=== PATIENT | female | born 2000 | race Two or more races ===

== ENCOUNTER 2025-03-14 14:36 | Emergency (ER) | payer MEDICAID, OTHER ==
[~2025-03-14] VITALS: Ht 172.7 cm; Wt 73.4 kg
[2025-03-14 15:42] LABS: Hematocrit 42.4 % (36.0-46.0); Hemoglobin 14.2 g/dL (12.2-16.2); Mean Corpuscular Hemoglobin 28.4 pg (28.0-32.0); Mean Corpuscular Volume 84.8 fL (80.0-100.0); Nucleated Red Blood Cells % 0.0 %
[2025-03-14 15:51] LABS: Chloride 105 mmol/L (98-107); Potassium 3.9 mmol/L (3.5-5.1); Sodium 140 mmol/L (136-145)
[2025-03-14 15:52] LABS: Anion Gap 11 (5-15); Calcium 9.1 mg/dL (8.7-10.4); Carbon Dioxide 24 mmol/L (20-31)
[2025-03-14 15:57] LABS: Glucose 88 mg/dL (74-106)
[2025-03-14 16:09] LABS: BUN/Creatinine Ratio 9.5 (10.0-20.0)
[2025-03-14 16:19] LABS: Blood Urea Nitrogen 7 mg/dL (9-23)
[2025-03-14 17:33] LABS: Urine Protein, UAD TRACE (Negative)
--- NOTE | 2025-03-14 18:34 | ED.PDOC ---
History of Present Illness HPI Comments 24-year-old female who came to ER for vaginal bleeding. Patient is a , approximately 4 weeks by LMP. For the past 2 days she has been experiencing lower abdominal cramping pain, earlier today she started having vaginal bleeding. Denies any trauma REVIEW OF SYSTEMS: General: No fever, no chills, or fatigue HEENT: No sore throat, no earache, no congestion, no neck pain. Cardiac: No chest pain. No palpitations. Lungs: No shortness of breath, no cough. GI: No nausea, no vomiting, no diarrhea, no constipation, (+) abdominal pain : No dysuria, frequency, or urgency. No hematuria. (+) vaginal bleeding Musculoskeletal: No joint pain , no joint swelling, no extremity edema. Skin: No rash, no itching. Neuro: No headache, no dizziness, no weakness PHYSICAL EXAM: General: Awake, alert and oriented. No acute distress. Skin: Skin in warm, dry and intact without rashes or lesions. HEENT: The head is normocephalic and atraumatic. Conjunctivae are clear without exudates or hemorrhage. Sclera is non-icteric. Neck: Normal range of motion. No JVD. Cardiac: Regular rate Respiratory: No signs of respiratory distress. No Stridor. Abdomen: No tenderness, no CVA tenderness Neurological: The patient is awake, alert and oriented to person, place, and ti me with normal speech. Speech is clear. There is no facial asymmetry. Normal gait Psychiatric: Appropriate mood and affect. Good judgement and insight. 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 Was a procedure done?: No Differential Dx Considerations may include: Early , ectopic . UTI X-Ray, Labs, Meds, VS Vital Signs Date Time Temp Pulse Resp B/P (MAP) Pulse Ox O2 Delivery O2 Flow Rate FiO2 03/14/25 20:45 Room Air* 0 21 03/14/25 19:42 98.7 93 18 135/85 (102) 99 98.7 03/14/25 14:37 97.9 94 15 138/91 99 97.9 Lab Test 03/14/25 16:35 03/14/25 15:22 Range/Units Urine Color Yellow Yellow Urine Clarity Turbid H Clear Urine pH 6.5 5.0-9.0 Urine Specific [place] 1.016 1.001-1.035 Urine Protein Trace H Negative Urine Ketones 1+ H Negative Urine Blood 3+ H Negative /uL Urine Nitrite Negative Negative Urine Bilirubin Negative Negative Urine Urobilinogen Normal Negative mg/dL Urine Leukocyte Esterase 1+ Negative /uL Urine RBC 3 0 - 4 /hpf Urine Microscopic WBC 9 H 0-5 /HPF Urine Squamous Epithelial Cells Few <5 /hpf Urine Bacteria None seen None Seen /hpf Urine Glucose Normal Normal mg/dL Chlamydia trachomatis (KOFI) Pending Neisseria gonorrhoeae (KOFI) Pending White Blood Count 7.5 4.4-10.8 10^3/uL Red Blood Count 5.00 4.0-5.20 10^6/uL Hemoglobin 14.2 12.2-16.2 g/dL Hematocrit 42.4 36.0-46.0 % Mean Corpuscular Volume 84.8 80.0-100.0 fL Mean Corpuscular Hemoglobin 28.4 28.0-32.0 pg Mean Corpuscular Hemoglobin Concent 33.5 32.0-36.0 g/dL Red Cell Distribution Width 14.2 11.8-14.3 % Platelet Count 238 140-450 10^3/uL Mean Platelet Volume 10.6 6.9-10.8 fL Neutrophils (%) (Auto) 57.3 37.0-80.0 % Lymphocytes (%) (Auto) 34.1 10.0-50.0 % Monocytes (%) (Auto) 7.6 0.0-12.0 % Eosinophils (%) (Auto) 0.5 0.0-7.0 % Basophils (%) (Auto) 0.5 0.0-2.0 % Neutrophils # (Auto) 4.3 1.6-8.6 10 ^3/uL Lymphocytes # (Auto) 2.6 0.4-5.4 10 ^3/uL Monocytes # (Auto) 0.6 0-1.3 10 ^3/uL Eosinophils # (Auto) 0 0-0.8 10 ^3/uL Basophils # (Auto) 0 0-0.2 10 ^3/uL Nucleated Red Blood Cells 0.0 % Sodium Level 140 136-145 mmol/L Potassium Level 3.9 3.5-5.1 mmol/L Chloride Level 105 98-107 mmol/L Carbon Dioxide Level 24 20-31 mmol/L Anion Gap 11 5-15 Blood Urea Nitrogen 7 L 9-23 mg/dL Creatinine 0.74 0.550-1.02 mg/dL Glomerular Filtration Rate Calc 115 >90 mL/min BUN/Creatinine Ratio 9.5 L 10.0-20.0 Serum Glucose 88 74-106 mg/dL Calcium Level 9.1 8.7-10.4 mg/dL Beta HCG, Quantitative 90.0 H 1.5-4.2 mIU/mL PATIENT: FLORENCE BECERRA GACCT: [id number]: [id number] : 2000 LOC: ER ROOM / BED: / AGE / SEX: 24 / F ADM STATUS: REG ER SERVICE 183 ORDERING PHYSICIAN: ALEXANDRA RICO MD PROCEDURE(s): OB4US - OB ULTRASOUND COMP LESS 14WKS REASON: Vaginal Bleeding during ORDER NUMBER(s): [id number], ACCESSION NUMBER(s): [id number] Procedure: US OB ULTRASOUND COMP LESS 14WKS Study Date and Requested Time: 03/14/2025 07:37 PM Study Description: US OB ULTRASOUND COMP LESS 14WKS History: Vaginal Bleeding during Comparison: None Technique: Multiple high resolution greenberg-scale images obtained of the uterus, fetus, and other gestational components with M-mode scanning for evaluation of heart rate. Findings: No intrauterine is visualized. Uterus measures 6.2 x 4.2 x 4.6 cm in size. Cervical os appears closed. Endometrial thickness of 1 cm Right ovary measures 1.9 x 1 x 1 x 1.3 cm with normal color doppler flow. The left ovary is not visualized. No evidence of free fluid in the cul-de-sac. Impression: No intrauterine is visualized. An ectopic can not excluded. Recommend correlation with beta HCG and ultrasound as clinically indicated. Right ovary is within normal limits. The left ovary is not visualized. Time of 1ST Reevaluation: 18:30 Reevaluation 1ST: Unchanged Patient Education/Counseling: Need For Follow Up Family Education/Counseling: No Family Present SEPSIS Sepsis Screen Date sepsis recognized/suspect: Mar 14, 2025 Time Sepsis recognized/suspect: 1440 Recent Procedure: No On Antibiotic Therapy: No Respiratory Rate >20: No Heart Rate >90: No Temp<36 C (96.8 F) or >38.3 C: No SBP <90 or MAP <65 mmHG: No New Acute Mental Status Change: No Is the patient on CPAP, BIPAP,: No Physician Orders Chlamydia/Gc Amplification (03/14/25 18:39) Ob Ultrasound Comp Less 14wks (03/14/25 18:39) Vital Signs Date Time Temp Pulse Resp B/P (MAP) Pulse Ox O2 Delivery O2 Flow Rate FiO2 03/14/25 20:45 Room Air* 0 21 03/14/25 19:42 98.7 93 18 135/85 (102) 99 98.7 03/14/25 14:37 97.9 94 15 138/91 99 97.9 Laboratory Tests Test 03/14/25 15:22 White Blood Count 7.5 10^3/uL (4.4-10.8) Departure 1 Departure Time of Disposition: 19:42 Impression: Primary Impression: Vaginal bleeding during Additional Impression: , location unknown Disposition: 01 HOME / SELF CARE / HOMELESS Condition: Stable Additional Instructions: INSTRUCCIONES DE ERIC DE Urgencias Instrucciones: Liv atentamente todas las instrucciones proporcionadas en [place]. Aunque le hayan dado el eric del Departamento de Emergencias, esto no significa que tenga un "certificado de buena niko". Hoy no se salgado realizado ningn diagnstico definitivo para pablo sntomas. Es posible que ests en proceso de desarrollar jesi enfermedad grave. Es por eso que debe regresar al servicio de urgencias sin falta si presenta algn sntoma nuevo o que empeora (especialmente si pablo sntomas incluyen dolor en el pecho, dificultad para respirar, dolor abdominal, fiebre, dolor de abby, confusin, dificultad para marcus o caminar). Es muy importante que consulte con fermin gineclogo/obstetra para repetir la prueba de embarazo y jesi ecografa dentro de 3 a 5 teixeira. Si no puede obtener jesi vasiliy con fermin gineclogo/obstetra, regrese al servicio de urgencias para que le repitan las pruebas. Adjunto encontrar ejsi copia de fermin informe de ecografa. Por favor, entregue [place] y llvelo a fermin prxima vasiliy de seguimiento. Embarazo de ubicacin desconocida (EUD) Qu es un EUD? Un embarazo de ubicacin desconocida (EUD) se produce cuando jesi prueba de embarazo en orina o zafar da positiva y el embarazo no se puede marcus en jesi ecografa. Cuando se tiene un EUD, debe encontrarse. El equipo mdico decidir si crecer de forma puga. Por qu no podemos verlo en jesi ecografa? Es demasiado pronto para verlo Jesi persona est teniendo un aborto espontneo Hay un embarazo ectpico Qu es un embarazo ectpico? Es un embarazo que comenz fuera del tero. [place] puede ser potencialmente mortal [place] es normal Necesitar un seguimiento cercano con: Ecografas Anlisis de zafar Visitas con fermin equipo de atencin mdica Los embarazos ectpicos ocurren con mayor frecuencia dentro de la trompa de [place]. Tambin se le puede llamar embarazo tubrico. Otros lugares donde se pueden encontrar son: El francisca uterino Jesi cicatriz de cesrea Un ovario El abdomen 2 de cada 100 embarazos estarn fuera del tero (ectpicos). El embarazo no puede continuar porque: Pueden ser potencialmente mortales No puede ser un embarazo viable No se puede trasladar al tero Cuando se detectan a tiempo, algunos se pueden tratar con un medicamento llamado metotrexato. Es posible que necesite jesi ciruga lidia para extraer el embarazo o la trompa de [place]op[place]. Cuidndose en casa Hasta que se detecte el embarazo, debe: Guardar reposo plvico ( no se laura duchas vaginales, no use tampones ni tenga relaciones sexuales). No xin ibuprofeno, Motrin , aspirina ni otros medicamentos CALVIN Caney acetaminofn (Tylenol ) segn sea necesario. Erika kiki agua. Caney fermin medicamento a menos que fermin equipo de atencin mdica le indique lo contrario No espere hasta que la clnica est abierta. Llame de inmediato o vaya a la carlos de emergencias si tiene: Sangrado vaginal abundante (empapa jesi toalla sanitaria en menos de 1 hora) Dolor abdominal intenso o que empeora Mareo o desmayo Seguimiento Se necesita un seguimiento cercano para un embarazo de localizacin desconocida (PUL) Un anlisis de zafar. Esta prueba se conoce katie gonadotropina corinica humana beta srica (HCG). Tambin se puede llamar cuantificacin. Regrese para hacerse fermin segunda prueba de HCG 48 horas despus de esta visita. Fermin nivel de HCG debera aumentar aproximadamente un 66 % en cori tiempo si: el embarazo es normal est creciendo en fermin tero Jesi ecografa en 3 a 5 teixeira Necesita regresar para hacerse pruebas. PATIENT: RODRÍGUEZ ESTRELLA,HEILYN G ACCT: [id number] UNIT: [id number] : 2000 LOC: ER ROOM / BED: / AGE / SEX: 24 / F ADM STATUS: REG ER SERVICE 38 PROCEDURE(s): OB4US - OB ULTRASOUND COMP LESS 14WKS REASON: Vaginal Bleeding during ORDER NUMBER(s): [id number], ACCESSION NUMBER(s): [id number] Procedure: US OB ULTRASOUND COMP LESS 14WKS Study Date and Requested Time: 03/14/2025 07:37 PM Study Description: US OB ULTRASOUND COMP LESS 14WKS History: Vaginal Bleeding during Comparison: None Technique: Multiple high resolution greenberg-scale images obtained of the uterus, fetus, and other gestational components with M-mode scanning for evaluation of heart rate. Findings: No intrauterine is visualized. Uterus measures 6.2 x 4.2 x 4.6 cm in size. Cervical os appears closed. Endometrial thickness of 1 cm Right ovary measures 1.9 x 1 x 1 x 1.3 cm with normal color doppler flow. The left ovary is not visualized. No evidence of free fluid in the cul-de-sac. Impression: No intrauterine is visualized. An ectopic can not excluded. Recommend correlation with beta HCG and ultrasound as clinically indicated. Right ovary is within normal limits. The left ovary is not visualized. ATED BY: DOLLY VOSS DO DICTATED DATE/TIME: 03/14/252013 SIGNED BY: DOLLY VOSS DO SIGNED DATE/TIME: 03/14/252013 CC: Comments MDM: [age] female with subchorionic hemorrhage. Patient advised to return to the emergency department or follow up with chip mixing machine operator within a few days for re-evaluation. I reviewed the following notes from the pt's past medical encounters: N/A The following tests were ordered, and results were reviewed by me: (See diagnostic results section) I discussed treatments and results with patient Decision regarding hospitalization or escalation of hospital level of care: Risks and benefits of admission for further treatment of patient's condition was considered however due to patient's stable condition patient will be discharged to follow up closely or return to care for worsening of condition or inability to follow up. Critical Care Note Critical Care Time?: No Stability Stability form required: No Heart Score Heart Score: Heart Score Response (Comments) Value History N/A 0 EKG N/A 0 Age N/A 0 Risk Factors N/A 0 Troponin N/A 0 Total 0 I personally scribed for ALEXANDRA RICO MD ([email or web address]) on 03/14/25 at 18:34. Electronically submitted by Torsten Wilson ([email or web address]). ALEXANDRA RICO MD Mar 14, 2025 18:34
[2025-03-14 19:42] VITALS: BP 135/85; PULSE 93; RESP 18; TEMP 98.7; O2SAT 99
--- NOTE | 2025-03-14 20:17 | DVH ---
Procedure: US OB ULTRASOUND COMP LESS 14WKS Study Date and Requested Time: 03/14/2025 07:37 PM Study Description: US OB ULTRASOUND COMP LESS 14WKS History: Vaginal Bleeding during Comparison: None Technique: Multiple high resolution greenberg-scale images obtained of the uterus, fetus, and other gestational components with M-mode scanning for evaluation of heart rate. Findings: No intrauterine is visualized. Uterus measures 6.2 x 4.2 x 4.6 cm in size. Cervical os appears closed. Endometrial thickness of 1 cm Right ovary measures 1.9 x 1 x 1 x 1.3 cm with normal color doppler flow. The left ovary is not visualized. No evidence of free fluid in the cul-de-sac. Impression: No intrauterine is visualized. An ectopic can not excluded. Recommend correlation with beta HCG and ultrasound as clinically indicated. Right ovary is within normal limits. The left ovary is not visualized.
[2025-03-17 05:08] LABS: Chlamydia Trachomatis, NAA Negative (Negative); Neisseria gonorrhoeae, NAA Negative (Negative)
== END 2025-03-14 21:05 | disposition home or self-care (01) ==
LOC: ER 14:36
DX: O20.9 Hemorrhage in early pregnancy, unspecified (principal); R10.20 Pelvic and perineal pain unspecified side; Z3A.01 Less than 8 weeks gestation of pregnancy; Z79.899 Other long term (current) drug therapy
CPT/HCPCS: 36415; 76801; 80048; 81001; 84702; 85025; 86900; 86901